=== PATIENT | male | born 1975 | race Caucasian/White ===

== ENCOUNTER 2020-03-11 14:36 | Emergency (ER) | payer OTHER ==
[~2020-03-11] VITALS: Ht 175.3 cm; Wt 65.9 kg
[2020-03-11 14:44] VITALS: BP 119/82; TEMP 98.6
[2020-03-11] MEDS ORDERED: CEPHALEXIN500 M1 PO (15:29)
[2020-03-11 15:50] VITALS: PULSE 81
== END 2020-03-11 15:51 | disposition home or self-care (01) ==
LOC: COL.ER 14:36
DX: S62.202B Unspecified fracture of first metacarpal bone, left hand, initial encounter for open fracture (principal); W27.8XXA Contact with other nonpowered hand tool, initial encounter